=== PATIENT | male | born 1990 | race Caucasian/White ===

== ENCOUNTER 2018-06-09 07:00 | Emergency (ER) | payer MEDICAID ==
[~2018-06-09] VITALS: Ht 170.2 cm; Wt 83.9 kg
[~2018-06-09 07:00] MED LIST: CLEOCIN HCL300 MG PO; NORCO 5-325 TA1 EACH PO
[2018-06-09] MEDS ORDERED: BACLOFEN10 MG PO (07:26)
[2018-06-09] MEDS ORDERED: METHYLPREDNISOLO4 M1 PO (07:26)
== END 2018-06-09 07:33 | disposition home or self-care (01) ==
LOC: ED 07:00
DX: M25.512 Pain in left shoulder (principal); F17.200 Nicotine dependence, unspecified, uncomplicated
CPT/HCPCS: 99283

== ENCOUNTER 2020-02-02 03:55 | Emergency (ER) | payer SELFPAY ==
[~2020-02-02] VITALS: Ht 170.2 cm; Wt 90.7 kg
[~2020-02-02 03:55] MED LIST changes: +BACLOFEN10 MG PO; +METHYLPREDNISOLO4 M1 PO
--- OUTSIDE RECORDS SUMMARY | 2020-02-02 03:58 | XMS ---
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 Rom has no Care Guidelines for this patient. Care History Medical/Surgical 06/10/2018 [facility] - CHW spoke with patient about insurance and PCP set up. Patient has already applied for Medicaid benefits through the [facility] office. - Once patient receives an ID number he will contact CHW to establish with a PCP. Care Recommendation: - Patient DOES NOT have a PCP. - Please refer patient to [place] [facility]: [address], [place] [address] This patient has had 5 or more Emergency Department visits in the last 12 months.\T\nbsp; Patient requires education on the scope and purpose of the ED as an acute care provider not a Primary Care Provider and should not be utilized for chronic conditions.\T\nbsp; If patient returns to ED please contact Community Health WorkerMinna at [phone]. These are guidelines and the provider should exercise clinical judgment when providing care. E.D. VISIT COUNT (12 MO.) 1 [facility] TOTAL 1 NOTE: Visits indicate total known visits. ED/UCC VISIT TRACKING (12 MO.) 02/02/2020 03:55 [facility] [place] TYPE: Emergency COMPLAINT: - VISION CONCERN INPATIENT VISIT TRACKING (12 MO.) No inpatient visits to display in this time frame [email or web address]
[2020-02-02] MEDS ORDERED: ACETAMINOPHEN-1 EAC1 PO (04:27)
== END 2020-02-02 04:43 | disposition home or self-care (01) ==
LOC: ED 03:55
DX: H16.133 Photokeratitis, bilateral (principal); F17.200 Nicotine dependence, unspecified, uncomplicated; W89.8XXA Exposure to other man-made visible and ultraviolet light, initial encounter
CPT/HCPCS: 99283

== ENCOUNTER 2020-04-30 00:21 | Emergency (ER) | payer SELFPAY ==
[~2020-04-30] VITALS: Ht 170.2 cm; Wt 90.7 kg
[~2020-04-30 00:21] MED LIST changes: +ACETAMINOPHEN-1 EAC1 PO
--- OUTSIDE RECORDS SUMMARY | 2020-04-30 00:24 | XMS ---
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 Rom has no Care Guidelines for this patient. Care History Medical/Surgical 06/10/2018 [facility] - CHW spoke with patient about insurance and PCP set up. Patient has already applied for Medicaid benefits through the [facility] office. - Once patient receives an ID number he will contact CHW to establish with a PCP. Care Recommendation: - Patient DOES NOT have a PCP. - Please refer patient to [place] [facility]: [address], [place] [address] This patient has had 5 or more Emergency Department visits in the last 12 months.\T\nbsp; Patient requires education on the scope and purpose of the ED as an acute care provider not a Primary Care Provider and should not be utilized for chronic conditions.\T\nbsp; If patient returns to ED please contact Community Health WorkerMinna at [phone]. These are guidelines and the provider should exercise clinical judgment when providing care. E.D. VISIT COUNT (12 MO[address] 2 [facility] TOTAL 2 NOTE: Visits indicate total known visits. ED/C VISIT TRACKING (12 MO.) 04/30/2020 00:22 [facility] [place] TYPE: Emergency COMPLAINT: - HAND INJURY 02/02/2020 03:55 [facility] [place] TYPE: Emergency COMPLAINT: - VISION CONCERN DIAGNOSES: - Ocular pain, bilateral - Nicotine dependence, unspecified, uncomplicated - Photokeratitis, bilateral - Exposure to other man-made visible and ultraviolet light, ini INPATIENT VISIT TRACKING (12 MO.) No inpatient visits to display in this time frame [id number]
== END 2020-04-30 01:43 | disposition home or self-care (01) ==
LOC: ED 00:21
DX: S61.012A Laceration without foreign body of left thumb without damage to nail, initial encounter (principal); S60.222A Contusion of left hand, initial encounter; F17.200 Nicotine dependence, unspecified, uncomplicated; Z23 Encounter for immunization; X99.1XXA Assault by knife, initial encounter
CPT/HCPCS: 73130; 90471; 90715; 99283-25

== ENCOUNTER 2021-06-16 23:33 | Emergency (ER) | payer OTHER ==
[~2021-06-16] VITALS: Ht 170.2 cm; Wt 90.7 kg
--- OUTSIDE RECORDS SUMMARY | 2021-06-16 23:40 | XMS ---
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 Details: POLICE CALLED - ESCORTED PATIENT OUT CRITERIA MET - Group Notification CARE PROVIDERS There are no care providers on record at this time. Rom has no Care Guidelines for this patient. Care History Medical/Surgical 06/10/2018 [facility] - CHW spoke with patient about insurance and PCP set up. Patient has already applied for Medicaid benefits through the [facility] office. - Once patient receives an ID number he will contact CHW to establish with a PCP. Care Recommendation: - Patient DOES NOT have a PCP. - Please refer patient to [place] [facility]: [address] [place] [address] [address], [place], [place] [address] This patient has had 5 or more Emergency Department visits in the last 12 months.\T\nbsp; Patient requires education on the scope and purpose of the ED as an acute care provider not a Primary Care Provider and should not be utilized for chronic conditions.\T\nbsp; If patient returns to ED please contact Community Health WorkerMinna at [phone]. These are guidelines and the provider should exercise clinical judgment when providing care. E.D. VISIT COUNT (12 MO.) 1 [facility] TOTAL 1 NOTE: Visits indicate total known visits. ED/UCC VISIT TRACKING (12 MO.) 06/16/2021 23:33 [facility] [place] TYPE: Emergency COMPLAINT: - VOMITING,HEADACHE,CHILLS INPATIENT VISIT TRACKING (12 MO.) No inpatient visits to display in this time frame [id number]
== END 2021-06-17 01:27 | disposition left against medical advice (07) ==
LOC: ED 23:33
DX: R51.9 Headache, unspecified (principal); F17.200 Nicotine dependence, unspecified, uncomplicated
CPT/HCPCS: 70450; 70496; 70498; 80053; 85025; 96374; 99284-25; J1885; J7121; Q3014; Q9967

== ENCOUNTER 2022-05-18 10:54 | Emergency (ER) | payer OTHER ==
[~2022-05-18] VITALS: Ht 170.2 cm; Wt 90.7 kg
--- OUTSIDE RECORDS SUMMARY | 2022-05-18 11:01 | XMS ---
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 Rom has no Care Guidelines for this patient. Care History Medical/Surgical 06/10/2018 [facility] - CHW spoke with patient about insurance and PCP set up. Patient has already applied for Medicaid benefits through the [facility] office. - Once patient receives an ID number he will contact CHW to establish with a PCP. Care Recommendation: - Patient DOES NOT have a PCP. - Please refer patient to [place] [facility]: [address] [place] [address] [address], [place] [address] This patient has had 5 or more Emergency Department visits in the last 12 months.\T\nbsp; Patient requires education on the scope and purpose of the ED as an acute care provider not a Primary Care Provider and should not be utilized for chronic conditions.\T\nbsp; If patient returns to ED please contact Community Health WorkerMinna at [phone]. These are guidelines and the provider should exercise clinical judgment when providing care. E.D. VISIT COUNT (12 MO.) 2 [facility] TOTAL 2 NOTE: Visits indicate total known visits. ED/UCC VISIT TRACKING (12 MO.) 05/18/2022 10:54 [facility] [place] TYPE: Emergency COMPLAINT: - ALTERED LOC 06/16/2021 23:33 [facility] [place] TYPE: Emergency COMPLAINT: - VOMITING,HEADACHE,CHILLS DIAGNOSES: - Headache, unspecified - Nicotine dependence, unspecified, uncomplicated INPATIENT VISIT TRACKING (12 MO.) No inpatient visits to display in this time frame [id number]
== END 2022-05-18 11:38 | disposition left against medical advice (07) ==
LOC: ED 10:54
DX: R41.0 Disorientation, unspecified (principal); F17.200 Nicotine dependence, unspecified, uncomplicated
CPT/HCPCS: 80053; 85025; 87502; 99285; G0480; U0003

== ENCOUNTER 2022-07-12 13:59 | Emergency (ER) | payer OTHER ==
[~2022-07-12] VITALS: Ht 170.2 cm; Wt 90.7 kg
--- OUTSIDE RECORDS SUMMARY | 2022-07-12 14:06 | XMS ---
PreManage Notification: DAHRA BECKMAN Security Intelligence Operations Specialist Events 2 event(s) in the past 18 months Most recent security events: Elopement at [facility] 05/18/2022 10:54 - Patient eloped before treatment completed. - Patient with suicidal and/or homicidal ideations eloped. - Patient eloped with IV in place. Details: PATIENT LEFT AMA Elopement at [facility] 06/16/2021 23:33 - Other Details: PATIENT LEFT AMA CRITERIA MET - Group Notification CARE PROVIDERS There are no care providers on record at this time. Rom has no Care Guidelines for this patient. Care History Medical/Surgical 06/10/2018 [facility] - CHW spoke with patient about insurance and PCP set up. Patient has already applied for Medicaid benefits through the [facility] office. - Once patient receives an ID number he will contact CHW to establish with a PCP. Care Recommendation: - Patient DOES NOT have a PCP. - Please refer patient to [place] [facility]: [address] [place] [address], [place], [place] [address] This patient has had 5 or more Emergency Department visits in the last 12 months.\T\nbsp; Patient requires education on the scope and purpose of the ED as an acute care provider not a Primary Care Provider and should not be utilized for chronic conditions.\T\nbsp; If patient returns to ED please contact Community Health WorkerMinna at [phone]. These are guidelines and the provider should exercise clinical judgment when providing care. E.D. VISIT COUNT (12 MO.) [address] [facility] TOTAL 2 NOTE: Visits indicate total known visits. ED/UCC VISIT TRACKING (12 MO.) 07/12/2022 14:00 [facility] [place] TYPE: Emergency COMPLAINT: - L HAND INJURY 05/18/2022 10:54 [facility] [place] TYPE: Emergency COMPLAINT: - ALTERED LOC DIAGNOSES: - Nicotine dependence, unspecified, uncomplicated - Disorientation, unspecified INPATIENT VISIT TRACKING (12 MO.) No inpatient visits to display in this time frame [id number]
== END 2022-07-12 15:00 | disposition home or self-care (01) ==
LOC: ED 13:59
DX: S61.315A Laceration without foreign body of left ring finger with damage to nail, initial encounter (principal); W22.8XXA Striking against or struck by other objects, initial encounter; F17.200 Nicotine dependence, unspecified, uncomplicated; Z23 Encounter for immunization
CPT/HCPCS: 11760; 73130; 90471; 90715; 99283-25

== ENCOUNTER 2022-07-25 13:33 | Emergency (ER) | payer OTHER ==
[~2022-07-25] VITALS: Ht 170.2 cm; Wt 90.7 kg
--- OUTSIDE RECORDS SUMMARY | 2022-07-25 13:40 | XMS ---
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 05/18/2022 10:54 - Patient eloped before treatment completed. - Patient with suicidal and/or homicidal ideations eloped. - Patient eloped with IV in place. Details: PATIENT LEFT AMA Elopement at [facility] 06/16/2021 23:33 - Other Details: PATIENT LEFT AMA CRITERIA MET - Group Notification - [facility] - 2 Visits in 30 Days CARE PROVIDERS There are no care providers on record at this time. Rom has no Care Guidelines for this patient. Care History Medical/Surgical 06/10/2018 [facility] - CHW spoke with patient about insurance and PCP set up. Patient has already applied for Medicaid benefits through the [facility] office. - Once patient receives an ID number he will contact CHW to establish with a PCP. Care Recommendation: - Patient DOES NOT have a PCP. - Please refer patient to [place] [facility]: [address] [place] [address], [place], [place] [address] This patient has had 5 or more Emergency Department visits in the last 12 months.\T\nbsp; Patient requires education on the scope and purpose of the ED as an acute care provider not a Primary Care Provider and should not be utilized for chronic conditions.\T\nbsp; If patient returns to ED please contact Community Health WorkerMinna at [phone]. These are guidelines and the provider should exercise clinical judgment when providing care. E.D. VISIT COUNT (12 MO.) 3 [facility] TOTAL 3 NOTE: Visits indicate total known visits. ED/UCC VISIT TRACKING (12 MO.) 07/25/2022 13:[address] [facility] [place] TYPE: Emergency COMPLAINT: - NAUSEA/VOMITING 07/12/2022 14:[address] [facility] [place] TYPE: Emergency COMPLAINT: - L HAND INJURY DIAGNOSES: - Striking against or struck by other objects, initial encounter - Nicotine dependence, unspecified, uncomplicated - Laceration without foreign body of left ring finger with damage to nail, initial encounter - Encounter for immunization 05/18/2022 10:[address] [facility] [place] TYPE: Emergency COMPLAINT: - ALTERED LOC DIAGNOSES: - Nicotine dependence, unspecified, uncomplicated - Disorientation, unspecified INPATIENT VISIT TRACKING (12 MO.) No inpatient visits to display in this time frame [id number]
[2022-07-25] MEDS ORDERED: ONDANSETRON ODT8 MG PO (15:59)
== END 2022-07-25 16:09 | disposition home or self-care (01) ==
LOC: ED 13:33
DX: K29.00 Acute gastritis without bleeding (principal); F17.200 Nicotine dependence, unspecified, uncomplicated
CPT/HCPCS: 36415; 80053; 81001; 83690; 85025; 96374; 99284-25; G0480; J1790; J7030

== ENCOUNTER 2022-12-18 15:38 | Emergency (ER) | payer OTHER ==
[~2022-12-18] VITALS: Ht 170.2 cm; Wt 90.7 kg
[~2022-12-18 15:38] MED LIST changes: +ONDANSETRON ODT8 MG PO
--- OUTSIDE RECORDS SUMMARY | 2022-12-18 15:46 | XMS ---
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 - Patient with suicidal and/or homicidal ideations eloped. - Patient eloped with IV in place. Details: PATIENT LEFT AMA CRITERIA MET - Group Notification CARE PROVIDERS -Dhara- Dentist: Land Resource Specialist [facility] PHONE: [phone] Rom has no Care Guidelines for this patient. Care History Medical/Surgical 06/10/2018 [facility] - CHW spoke with patient about insurance and PCP set up. Patient has already applied for Medicaid benefits through the [facility] office. - Once patient receives an ID number he will contact CHW to establish with a PCP. Care Recommendation: - Patient DOES NOT have a PCP. - Please refer patient to [place] [facility]: [address], [place] [address] This patient has had 5 or more Emergency Department visits in the last 12 months.\T\nbsp; Patient requires education on the scope and purpose of the ED as an acute care provider not a Primary Care Provider and should not be utilized for chronic conditions.\T\nbsp; If patient returns to ED please contact Community Health WorkerMinna at [phone]. These are guidelines and the provider should exercise clinical judgment when providing care. [place] VISIT COUNT (12 MO.) 4 [facility] TOTAL 4 NOTE: Visits indicate total known visits. ED/UCC VISIT TRACKING (12 MO.) 12/18/2022 15:38 [facility] [place] TYPE: Emergency COMPLAINT: - INTOXICATION 07/25/2022 13:33 [facility] [place] TYPE: Emergency COMPLAINT: - NAUSEA/VOMITING DIAGNOSES: - Nausea with vomiting, unspecified - Nicotine dependence, unspecified, uncomplicated - Acute gastritis without bleeding 07/12/2022 14:00 [facility] [place] TYPE: Emergency COMPLAINT: - L HAND INJURY DIAGNOSES: - Laceration without foreign body of left ring finger with damage to nail, initial encounter - Encounter for immunization - Striking against or struck by other objects, initial encounter - Nicotine dependence, unspecified, uncomplicated 05/18/2022 10:54 [facility] [place] TYPE: Emergency COMPLAINT: - ALTERED LOC DIAGNOSES: - Disorientation, unspecified - Nicotine dependence, unspecified, uncomplicated INPATIENT VISIT TRACKING (12 MO.) No inpatient visits to display in this time frame [id number]
== END 2022-12-20 10:24 | disposition home or self-care (01) ==
LOC: ED 15:38
DX: R45.851 Suicidal ideations (principal); F17.200 Nicotine dependence, unspecified, uncomplicated; F10.129 Alcohol abuse with intoxication, unspecified; Y90.6 Blood alcohol level of 120-199 mg/100 ml; Z78.1 Physical restraint status
CPT/HCPCS: 36415; 80053; 81003; 84443; 85025; 96372; 99285; G0480; J1630; J2060

== ENCOUNTER 2025-02-21 10:20 | Emergency (ER) | payer OTHER ==
[~2025-02-21] VITALS: Ht 170.2 cm; Wt 80.0 kg
[2025-02-21] MEDS ORDERED: NEOMYCIN-POLYMY10 M1 OTIC (10:53)
[2025-02-21] MEDS ORDERED: AMOXICILLIN500 MG PO (10:53)
[2025-02-21 10:57] VITALS: BP 126/71
== END 2025-02-21 10:58 | disposition home or self-care (01) ==
LOC: ED 10:20
DX: H60.91 Unspecified otitis externa, right ear (principal); K08.89 Other specified disorders of teeth and supporting structures; F17.200 Nicotine dependence, unspecified, uncomplicated
CPT/HCPCS: 99282

== ENCOUNTER 2025-06-04 01:43 | Emergency (ER) | payer OTHER ==
[~2025-06-04] VITALS: Ht 170.2 cm; Wt 76.0 kg
[~2025-06-04 01:43] MED LIST changes: +AMOXICILLIN500 MG PO; +NEOMYCIN-POLYMY10 M1 OTIC
[2025-06-04] MEDS ORDERED: FAMOTIDINE 20 MG TAB PO ONE (02:00)
[2025-06-04] MEDS ORDERED: DEXAMETHASONE SOD PHOS 10 MG/ML VIAL IM ONE (02:00)
[2025-06-04] MEDS ORDERED: CETIRIZINE HCL 10 MG TAB PO ONE (02:00)
[2025-06-04] MEDS ORDERED: PREDNISONE20 MG PO (02:15)
[2025-06-04] MEDS ORDERED: ONDANSETRON 4 MG TAB ODT SL ONE (02:45)
[2025-06-04] MEDS ORDERED: HYDROCODONE/ACETA 5/325 TAB PO ONE (02:45)
[2025-06-04 04:37] VITALS: BP 133/93
== END 2025-06-04 04:38 | disposition home or self-care (01) ==
LOC: ED 01:43
DX: J39.2 Other diseases of pharynx (principal); F17.200 Nicotine dependence, unspecified, uncomplicated
CPT/HCPCS: 96372; 99283; A9270; J1100; Q0163